=== PATIENT | female | born 1990 | race Caucasian/White ===

== ENCOUNTER 2019-02-28 08:22 | Inpatient (IN) | payer BC ==
--- NOTE | 2019-02-28 09:00 | HP ---
General Information - Reason for Visit IUP@40+4 here in active labor - General Information Maternal Age: 28 Grav: 1 Para: 0 SAB: 0 IEA: 0 Estimated Due Date: 02/24/19 Determined By: Early Ultrasound Gestational Age in Weeks/Days: 40+4 Maternal Blood Type and Rh: A Positive - Results this Serology/RPR Result: Non-Reactive Rubella Result: Immune HBsAg Result: Negative HIV Result: Negative GBS Culture Result: Negative Past Medical History Pertinent Past Medical History: See Records - Transfer of care at 35+3 Past Medical History Comment: Depression/anxiety Migraine, without aura Herpes, cold sores Pertinent Past Surgical History: None Pertinent Family History: See Records - Antepartal Records Antepartal Records: Reviewed, Uncomplicated Review of Systems Constitutional: Uncomfortable CV Complaint: No Respiratory: Shortness of Breath: No Gastrointestinal: No Nausea/Vomiting, Normal Bowel Movement Genitourinary: No Dysuria, No Bleeding, No Leaking Fluid Musculoskeletal: Contractions Neurological: No Headache, No Visual Changes Movement: Normal Exam Allergies/Adverse Reactions: Allergies No Known Allergies Allergy (Verified 07/16/14 12:36) BP 121/88, HR 80, RR 20, temp 98.7 - Measurements Height: 5 ft Weight: 206 lb Weight in lbs: 206.620140 Body Mass Index (BMI): 40.2 Pre- Weight: 146 lb Weight Gained This : 60 lbs and 0 ozs - Exam Breast: Breast Exam Deferred CVA: No CVA Tenderness Extremities: Edema - mild pedal edema Heart: Normal Rhythm/Heart Sounds HEENT: No Significant Findings Lungs: Clear Bilaterally Rectal: Rectal Exam Deferred Reflexes: DTR 2+ Targeted Exam Findings Estimated Weight: 9lbs via leopolds Cervical Exam: 3cm Effacement: 70% Station: -1 Presenting Part: Vertex Membrane Status: Intact Bleeding/Discharge: None EFM Findings - External Monitor Findings Baseline Heart Rate: 140 External Monitor Findings: Accelerations Present, No Pattern of Variable or Late Decelerations, Variability Moderate External Monitor Findings Comment: Occasional early decel, no evidence of metabolic acidemia Contractions: Regular, 45-90 Seconds - q3-6 Assessment/Plan - Assessment 28yo, , IUP@40+4 Active labor GBS negative, A+ Regular contractions No evidence of metabolic acidemia - Plan Plan: Admit - Anticipate Vaginal Delivery Plan Comment: Admit to L&D Epidural now Anticipate progression to - Date/Time of Admission Date of Admission: 02/28/19 Time of Admission: 09:00
[2019-02-28] MEDS ORDERED: Buffered Lidocaine 1% SYRIN* 1 ML/SYRINGE INTRADERM ONE (09:16)
[2019-02-28] MEDS ORDERED: Lactated Ringers 1000 ML Bag* 1,000 ML IV ONE ×2 (09:16→10:13)
[2019-02-28 09:29] LABS: ABS Basophils 0 10^3/ul (0-0.2); ABS Eosinophils 0.1 10^3/ul (0-0.6); ABS Lymphocytes 2.1 10^3/ul (1.0-4.8); ABS Monocytes 0.9 10^3/ul (0-0.8); ABS Neutrophils 10.5 10^3/ul (1.5-7.7); ABS Nucleated RBC 0 10^3/ul; Eosinophil % 0.5 %; Hematocrit 39 % (33-41); Hemoglobin 13.1 g/dL (12.0-16.0); Lymphocyte % 15.7 %; Mean Corpuscular HGB Conc 33 g/dL (31-36); Mean Corpuscular Hemoglobin 30 pg (27-31); Mean Corpuscular Volume 89 fL (80-97); Mean Platelet Volume 10.1 fL (7.4-10.4); Nucleated Red Blood Cells % 0.1; Platelet Count 201 10^3/uL (150-450); Red Blood Count 4.41 10^6 /uL (3.70-4.87); Red Cell Distribution Width 14 % (10.5-15); White Blood Count 13.7 10^3/uL (3.5-10.8)
[2019-02-28] MEDS ORDERED: OBEPIDURAL* 250 ML EPIDURAL ONE (09:36)
[2019-02-28] MEDS ORDERED: Lactated Ringers 1000 ML Bag* 1,000 ML IV SCH ×2 (10:00→11:00)
[2019-02-28] MEDS ORDERED: Famotidine TAB* 20 MG PO PRN (10:13)
[2019-02-28] MEDS ORDERED: Phenylephrine 40 MCG/ML SYRINGE IV PUSH PRN ×2 (10:13)
[2019-02-28] MEDS ORDERED: EPHEDrine (Pressors)* 50 MG/ML VIAL IV PUSH PRN ×2 (10:13)
[2019-02-28] MEDS ORDERED: Sodium Citrate/Citric Acid* 15 ML UDC PO PRN (10:13)
[2019-02-28] MEDS ORDERED: OBEPIDURAL* 250 ML EPIDURAL SCH (11:00)
--- NOTE | 2019-02-28 11:42 | PN ---
Progress Note - Progress Note Date of Service: 02/28/19 Note: S: Pt resting comfortably in bed. Experiencing tightening, but not pain during contractions. Will try to rest. O: BP 109/51, HR 77 FHR: 140, moderate variability, +accels, occasional decel Ctx: q3-5 mins VE: 3-4/80%/-1, bulging bag (IBOW), +bloody show A: VSS regular contractions no evidence of metabolic acidemia P: VE PRN Anticipate progression to
--- NOTE | 2019-02-28 13:03 | PN ---
Progress Note - Progress Note Date of Service: 02/28/19 Note: S: Called to bedside by RN for prolonged decel. Pt on left lateral, O2 mask applied to face, IV fluids infusing. at bedside, supportive. O: BP 128/56, HR 83 FHR: 3 minute prolonged decel, recovered. FHR 135, moderate variability. Ctx: q2-4 mins VE: 5/90%/-1, bulging bag (IBOW), +bloody show A: VSS regular contractions no evidence of metabolic acidemia P: VE PRN Anticipate progression to
--- NOTE | 2019-02-28 14:27 | PN ---
Progress Note - Progress Note Date of Service: 02/28/19 Note: S: Pt resting comfortably in bed. at bedside and supportive. O: BP 109/65, HR 85 FHR: 145, moderate variability, +accels, early decels Ctx: q2-5mins VE: 5/90%/-1, SROM, clear fluid A: VSS regular contractions no evidence of metabolic acidemia P: VE PRN Anticipate progression to
--- NOTE | 2019-02-28 16:21 | PN ---
Progress Note - Progress Note Date of Service: 02/28/19 Note: S: Pt feeling pressure. Requesting VE. at bedside and supportive. O: BP 113/83, HR 97 FHR: 145, moderate variability, +accels, early decels Ctx: q2-5mins VE: 6/100%/-1, SROM, clear fluid A: VSS regular contractions no evidence of metabolic acidemia P: VE PRN Anticipate progression to
--- NOTE | 2019-02-28 18:38 | PN ---
Progress Note - Progress Note Date of Service: 02/28/19 Note: S: Pt feeling better after emesis. Reports ongoing sensation of pressure. Feeling more of the contractions. O: BP 119/84, temp 99.5 FHR: 145, moderate variability, +accels, early decels Ctx: q2-4mins VE: 7/100%/-1, clear fluid A: VSS regular contractions no evidence of metabolic acidemia P: VE PRN Anticipate progression to
--- NOTE | 2019-02-28 19:01 | PN ---
Progress Note - Progress Note Date of Service: 02/28/19 Note: S: Called to bedside by RN for prolonged decel. Pt on left lateral, IV fluids infusing. O: BP 127/79 FHR: decel with josse of 60, return to baseline. Recovered, now moderate variability, baseline 150 Ctx: q2-4mins A: VSS VE deferred regular contractions no evidence of metabolic acidemia P: VE PRN Anticipate progression to
[2019-02-28] MEDS ORDERED: Lidocaine 2% EPI 1:200000 MPF*10-20 ML VIAL ONE (19:36)
--- NOTE | 2019-02-28 21:00 | PN ---
Progress Note - Progress Note Date of Service: 02/28/19 Note: S: Pt comfortable after redose of epidural. Shaking. at bedside, supportive. O: Temp 100, FHR: 155, minimal to moderate variability, no accelerations, early decels Ctx: q2-4mins VE: 9/100%/-1, clear fluid, no odor Fundus/abdomen non-tender A: Pt temperature rising, 500mL bolus administered regular contractions no evidence of metabolic acidemia P: Will monitor maternal BP closely VE PRN Anticipate progression to
[2019-02-28] MEDS ORDERED: Ondansetron INJ* 2 MG/ML VIAL IV ONE (21:39)
[2019-02-28] MEDS ORDERED: Ondansetron INJ* 2 MG/ML VIAL ONE (21:46)
[2019-02-28] MEDS ORDERED: Oxytocin in LR* 20 UNITS/1,000 ML BAG IVPB ONE (23:35)
[2019-02-28] MEDS ORDERED: Misoprostol TAB* 200 MCG ONE (23:58)
[2019-03-01] MEDS ORDERED: Witch Hazel PAD* JAR TOPICAL PRN (00:08)
[2019-03-01] MEDS ORDERED: Misoprostol TAB* 200 MCG PR ONE (00:08)
[2019-03-01] MEDS ORDERED: Ibuprofen TAB* 600 MG PO PRN (00:08)
[2019-03-01] MEDS ORDERED: Dibucaine 1% 28.35 GM TUBE PR PRN (00:08)
[2019-03-01] MEDS ORDERED: Glycerin ADULT SUPP PR PRN (00:08)
[2019-03-01] MEDS ORDERED: Acetaminophen TAB* 325 MG PO PRN (00:08)
--- NOTE | 2019-03-01 00:14 | PROCNOTE ---
[facility] OB: Delivery Note - Delivery A Date of : 02/28/19 Time of : 23:29 [place] Sex: Female Gestational Age in Weeks and Days at Delivery: 40 Weeks and 4 Days Delivery Method: Spontaneous Vaginal Labor: Spontaneous Did Patient attempt ?: N/A, No Previous Amniotic Fluid: Clear Estimated Blood Loss: 600 Anesthesia/Analgesia: CEI for Labor Delivered By: Kinza Reilly Nursery Level of Nursery: Regular/Bedside - Perineum Perineal Injury: Vaginal Laceration - Left labial laceration, repaired in the usual fashion with 4-0 Vicryl, anatomy restored Perineal Repair: By Delivering Practioner - Events Delivery Events of Note: Pitocin Only After Delivery, Supplemental O2 to Mother , Post- Bleeding - Meds Given - Risk for Falls Delivered OB Patient- Risk for Falls: Heavy Bleeding Fall Risk: Patient is at High Risk for Falls - Additional Delivery Notes Additional Delivery Notes: Pt was admitted in active labor. She received an epidural, progressed through labor and pushed for 2hrs 14min to deliver the infant's head followed quickly by the rest of the body. Nuchal cordx1, somersault maneuver employed. The baby was placed on mom's abdomen. Delivery was supervised by Radha Alcantar MD. 's were 7 and 9. After more than 1min the cord was clamped x2 and cut by the FOB. After 6mins the placenta delivered with gentle cord traction and fundal massage and appeared intact. Brisk bleeding followed, resolving with bimanual massage, IV Pitocin, and 800mcg of cytotec. Fundus was firm. EBL 600. There was a left labial laceration that was repaired in the usual fashion, under supervision from Radha Alcantar MD with 4-0 rapide with CEI infusing. Mom and baby stable at time of note.
[2019-03-01] MEDS ORDERED: Lactated Ringers 1000 ML Bag* 1,000 ML IV SCH (01:00)
[2019-03-01] MEDS ORDERED: Oxytocin in LR* 20 UNITS/1,000 ML BAG IVPB SCH (01:00)
[2019-03-01] MEDS ORDERED: Simethicone TAB* 80 MG TAB.CHEW PO SCH (08:30)
[2019-03-01] MEDS: Docusate CAP* 100 MG PO SCH ×3 (08:54→21:00)
[2019-03-01 10:22] LABS: Hematocrit 28 % (35-47); Hemoglobin 9.4 g/dL (12.0-16.0); Mean Corpuscular HGB Conc 34 g/dL (31-36); Mean Corpuscular Hemoglobin 30 pg (27-31); Mean Corpuscular Volume 88 fL (80-97); Mean Platelet Volume 9.8 fL (7.4-10.4); Platelet Count 148 10^3/uL (150-450); Red Blood Count 3.12 10^6 /uL (3.70-4.87); Red Cell Distribution Width 14 % (10.5-15); White Blood Count 26.7 10^3/uL (3.5-10.8)
[2019-03-01] MEDS ORDERED: Ferrous Gluconate TAB* 324 MG TAB ONE (10:33)
[2019-03-01] MEDS: Ferrous Gluconate TAB* 324 MG TAB PO SCH (10:38)
[2019-03-02 07:56] VITALS: BP 117/65
[2019-03-02] MEDS: Docusate CAP* 100 MG PO SCH ×2 (08:07→14:21)
[2019-03-02] MEDS: Ferrous Gluconate TAB* 324 MG TAB PO SCH (08:08)
== END 2019-03-02 15:36 | disposition home or self-care (01) | DRG 560 ==
LOC: MCHOBOUT 08:22 → MCHOB 09:03
PROVIDERS: ADMIT Advanced Practice Midwife; ATTEND Advanced Practice Midwife
PROC: 10E0XZZ Delivery of Products of Conception, External Approach (ICD-10-PCS; principal; 2019-02-28)
PROC: 4A1HXCZ Monitoring of Products of Conception, Cardiac Rate, External Approach (ICD-10-PCS; 2019-02-28)
PROC: 0UQMXZZ Repair Vulva, External Approach (ICD-10-PCS; 2019-02-28)
DX: O48.0 Post-term pregnancy (principal); O72.1 Other immediate postpartum hemorrhage; Z37.0 Single live birth; Z3A.40 40 weeks gestation of pregnancy; O76 Abnormality in fetal heart rate and rhythm complicating labor and delivery; O69.81X0 Labor and delivery complicated by cord around neck, without compression, not applicable or unspecified; O70.0 First degree perineal laceration during delivery; O90.81 Anemia of the puerperium
CPT/HCPCS: 36415; 85025; 85027; 86850; 86900; 86901; A9270-GY; J2405